=== PATIENT | male | born 1985 | race African-American/Black ===

== ENCOUNTER 2016-11-16 19:46 | Emergency (ER) | payer OTHER ==
[2016-11-16] MEDS ORDERED: METOCLOPRAMIDE HCL 10 MG/2 ML VIAL. IV ONE (20:45)
[2016-11-16] MEDS ORDERED: DIPHENHYDRAMINE 50 MG/ML VIAL. IVP ONE (20:45)
[2016-11-16] MEDS ORDERED: KETOROLAC TROMETHAMINE 30 MG/ML INJ. IV ONE (20:45)
[2016-11-16] MEDS ORDERED: IV NORMAL SALINE 1000ML BAG 1,000 ML IV ONE (20:45)
--- NOTE | 2016-11-16 20:57 | PHYS DOC ---
Past Medical History Past Medical History: No Pertinent History Past Surgical History: Other Additional Past Surgical Histo: left hand surgery-hardware Alcohol Use: Occasionally Drug Use: Cocaine Social History Narrative: none today Adult General Chief Complaint Chief Complaint: FLU SYMPTOM HPI HPI 31-year-old male presents with a 12 hour history of throbbing headache. He denies any fever or neck pain. He states he's felt run down all day today. He is not had any nausea or vomiting. He denies any lateralizing neurologic weakness. [] Review of Systems Review of Systems Constitutional: Denies fever or chills [] Eyes: Denies change in visual acuity, redness, or eye pain [] HENT: Denies nasal congestion or sore throat [] Respiratory: Denies cough or shortness of breath [] Cardiovascular: No additional information not addressed in HPI [] GI: Denies abdominal pain, nausea, vomiting, bloody stools or diarrhea [] : Denies dysuria or hematuria [] Musculoskeletal: Denies back pain or joint pain [] Integument: Denies rash or skin lesions [] Neurologic: Per history of present illness [] Endocrine: Denies polyuria or polydipsia [] Current Medications Current Medications Current Medications Medications (Trade) Dose Ordered Sig/Shirin Start Time Stop Time Status Last Admin Dose Admin Diphenhydramine HCl 25 mg 25 mg 1X ONCE 11/16/16 20:45 11/16/16 20:46 DC 11/16/16 20:57 25 MG Ketorolac Tromethamine (Toradol) 30 mg 1X ONCE 11/16/16 20:45 11/16/16 20:46 DC 11/16/16 20:56 30 MG Metoclopramide HCl (Reglan) 10 mg 1X ONCE 11/16/16 20:45 11/16/16 20:46 DC 11/16/16 20:56 10 MG Sodium Chloride (Iv Sodium Chloride 0.9% 1000ml Bag) 1,000 ml @ 1,000 mls/hr 1X ONCE 11/16/16 20:45 11/16/16 21:44 DC 11/16/16 20:56 1,000 MLS/HR Allergies Allergies Allergies Coded Allergies Type Severity Reaction Last Updated Verified No Known Drug Allergies 11/16/16 No Physical Exam Physical Exam Constitutional: Well developed, well nourished, moderate distress, non-toxic appearance. [] HENT: Normocephalic, atraumatic, bilateral external ears normal, oropharynx moist, no oral exudates, nose normal. [] Eyes: PERRLA, EOMI, conjunctiva normal, no discharge. [] Neck: Normal range of motion, no tenderness, supple, no stridor, no meningismus. [] Cardiovascular:Heart rate regular rhythm, no murmur [] Lungs & Thorax: Bilateral breath sounds clear to auscultation [] Abdomen: Bowel sounds normal, soft, no tenderness, no masses, no pulsatile masses. [] Skin: Warm, dry, no erythema, no rash. [] Back: No tenderness, no CVA tenderness. [] Extremities: No tenderness, no cyanosis, no clubbing, ROM intact, no edema. [] Neurologic: Alert and oriented X 3, normal motor function, normal sensory function, no focal deficits noted. [] Psychologic: Affect normal, judgement normal, mood normal. [] Current Patient Data Vital Signs Vital Signs Date Time Temp Pulse Resp B/P Pulse Ox O2 Delivery O2 Flow Rate FiO2 11/16/16 21:34 113 18 136/73 99 Room Air 11/16/16 19:49 99 99.0 EKG EKG [] Radiology/Procedures Radiology/Procedures [] Course & Med Decision Making Course & Med Decision Making Pertinent Labs and Imaging studies reviewed. (See chart for details) [ED course: Evaluation reveals a 31-year-old male with migrainous type symptoms. He was given IV fluids, Reglan, Toradol and Benadryl with complete resolution of his headache. Patient is stable for discharge on] Dragon Disclaimer Dragon Disclaimer This electronic medical record was generated, in whole or in part, using a voice recognition dictation system. Departure Departure Impression: Primary Impression: Headache Disposition: 01 HOME, SELF-CARE Condition: STABLE Referrals: NO PCP (PCP) Patient Instructions: Migraine Headache Additional Instructions: Thank you for allowing us to participate in your care today. Followup with your primary care physician in 3 days if your symptoms do not improve. Return to the emergency department you have any new or concerning findings. This should be evaluated by the primary care physician and any necessary consulting services for continued management within a few days after discharge. Return to emergency room if you have any new or concerning symptoms including but not limited to fever, chills, nausea, vomiting, intractable pain, any new rashes, chest pain, shortness of air, uncontrolled bleeding, difficulty breathing, and/or vision loss. You may have been prescribed medication that can change in your level of thinking and ability to operate machinery. These medications include hydrocodone and Ativan. Also, Benadryl has been known to do this as well. Be sure to check with your pharmacist and ask if the medications you've prescribed can affect your level of consciousness. I recommend not operating heavy machinery or driving while on medication such as these. Scripts Butalb/Acetaminophen/Caffeine (Fioricet 50-300-40 Mg Capsule)1 Each Capsule1 Each PO PRN Q4HRS PRN MIGRAINE HEADACHE #30 CAP Prov:MICHELLE VILLELA DO 11/16/16 Problem Qualifiers Primary Impression: Headache Headache type: tension-type Headache chronicity pattern: acute headache Intractability: not intractable Qualified Code: G44.209 - Tension-type headache, unspecified, not intractable MICHELLE VILLELA DO Nov 16, 2016 20:57
[2016-11-16 21:34] VITALS: BP 136/73
[2016-11-16] MEDS ORDERED: BUTA1CAP29 PO (22:27)
== END 2016-11-16 22:34 | disposition home or self-care (01) ==
LOC: ER 19:46
DX: G44.209 Tension-type headache, unspecified, not intractable (principal)
CPT/HCPCS: 96361; 96374; 96375; 99284; J1200; J1885; J2765; J7030

== ENCOUNTER 2017-09-04 21:08 | Emergency (ER) | payer OTHER ==
[2017-09-04 21:29] LABS: AGAP ISTAT 24 mmol/L (6-14); BUN ISTAT 9 mg/dL (8-26); CHLORIDE ISTAT 105 mmol/L (98-110); CREATININE ISTAT 1.5 mg/dL (0.5-1.4); GLUCOSE ISTAT 121 mg/dL (70-99); HEMATOCRIT ISTAT 48 % (37-52); HEMOGLOBIN ISTAT 16.3 g/dL (14-18); ION CA ISTAT 1.13 mmol/L (1.13-1.32); POTASSIUM ISTAT 3.2 mmol/L (3.5-5.0); SODIUM ISTAT 142 mmol/L (135-145); TOT CO2 ISTAT 17 mmol/L (23-32)
[2017-09-04] MEDS: IV NORMAL SALINE 1000ML BAG 1,000 ML IV ×2 (22:00)
== END 2017-09-04 23:19 | disposition home or self-care (01) ==
LOC: ER 21:08
DX: R20.2 Paresthesia of skin (principal); I10 Essential (primary) hypertension; Z91.14 Patient's other noncompliance with medication regimen; F14.10 Cocaine abuse, uncomplicated
CPT/HCPCS: 36415; 70450; 71045; 72170; 80047; 84484; 85014; 85018; 93005; 96360; 99284-25; J7030